=== PATIENT | male | born 1960 | race American Indian/Alaskan Native ===

== ENCOUNTER 2019-12-15 08:28 | Emergency (ER) | payer MEDICAID ==
[~2019-12-15] VITALS: Ht 170.2 cm; Wt 110.2 kg
[2019-12-15 08:38] VITALS: BP 144/90
--- NOTE | 2019-12-15 09:21 | NUR ---
LEFT HAND, #3 DIGIT LACERATION, CLEANED WITH NS 200ML. MOIST DRESSING APPLIED. AWAITING PROCEDURE. Addendum: 12/15/19 at 1101 by JIM digit # 3 has putchture wound to nail bed; laceration to digt 4.
[2019-12-15] MEDS ORDERED: LIDOcaine 1% W/epiNEPHrine 1:200,000 10ml vial IJ ONE (09:25)
[2019-12-15] MEDS ORDERED: bacitracin 15gm ointment TP ONE (09:25)
[2019-12-15] MEDS ORDERED: TETanus/Pertussis (Acell)/Diphther VAC/PF (Tdap-Adult) 0.5ml syringe IMVAC ONE (09:25)
[2019-12-15] MEDS ORDERED: ceFAZolin 1gm IM kit IM ONE (10:05)
[2019-12-15] MEDS ORDERED: AMOX-422 PO (10:40)
--- NOTE | 2019-12-15 11:02 | NUR ---
4th digit simple dressing placed after abx oitment applied. Pt educated about s/s of infection warranting a return ed visit. pt verbalized understanding of infection s/s.
== END 2019-12-15 11:18 | disposition home or self-care (01) ==
LOC: ER 08:28
DX: S62.665A Nondisplaced fracture of distal phalanx of left ring finger, initial encounter for closed fracture (principal); S61.215A Laceration without foreign body of left ring finger without damage to nail, initial encounter; W54.0XXA Bitten by dog, initial encounter; Y93.01 Activity, walking, marching and hiking; Y92.89 Other specified places as the place of occurrence of the external cause; Y99.9 Unspecified external cause status
CPT/HCPCS: 12001; 29130; 73140; 90471; 90715; 96372; 99284; J0690

== ENCOUNTER 2019-12-23 08:36 | Emergency (ER) | payer MEDICAID ==
[~2019-12-23] VITALS: Ht 170.2 cm; Wt 109.1 kg
[~2019-12-23 08:36] MED LIST: AMOX-422 PO
[2019-12-23 08:48] VITALS: BP 136/86
--- NOTE | 2019-12-23 09:20 | NUR ---
SURTURES REMOVED AND BANDAID PLACED.
== END 2019-12-23 09:22 | disposition home or self-care (01) ==
LOC: ER 08:36
DX: S60.042D Contusion of left ring finger without damage to nail, subsequent encounter (principal); Z79.899 Other long term (current) drug therapy; X58.XXXD Exposure to other specified factors, subsequent encounter
CPT/HCPCS: 99282